=== PATIENT | male | born 1990 | race Caucasian/White ===

== ENCOUNTER 2020-07-26 19:33 | Emergency (ER) | payer OTHER, SELFPAY ==
[2020-07-26 19:42] VITALS: BP 138/83; PULSE 66; RESP 16; TEMP 36.8; O2SAT 100
--- NOTE | 2020-07-26 20:00 | ED.GENADULT ---
HPI - General Adult General Chief complaint: Skin/Abscess/Foreign Body Stated complaint: Rash Time Seen by Provider: 07/26/20 20:00 Source: patient Mode of arrival: ambulatory Limitations: no limitations History of Present Illness HPI narrative: 29-year-old male patient presents to the [facility] with complaints of a rash for the past week. Patient states he has had a rash to bilateral thighs as well as his lower abdomen and going up to the left side. Patient denies coming in contact with anything that he is allergic to. Patient denies any new soaps lotions or detergent however he states that he has recently had some new razor soap. Patient denies any itching. Denies any pain to the area. Patient states he just came in because he has noticed a rash but it has not really bothered him. Patient states he has not tried anything or put any lotion soaps or ointments to the rash. Denies any fevers, body aches or chills. Denies any abdominal pain, nausea, vomiting or diarrhea. Denies any recent illness. Patient states he is in a monogamous relationship with his and does not have any concerns for any STDs or syphilis. Related Data Home Medications Medication Instructions Recorded Confirmed fluoxetine 20 mg PO DAILY 07/26/20 07/26/20 lorazepam 0.5 mg PO DIRECTED PRN 07/26/20 07/26/20 Allergies Allergy/AdvReac Type Severity Reaction Status Date / Time azithromycin Allergy Mild Rash Verified 07/26/20 19:44 lavender (Lavandula Allergy Mild Rash Verified 07/26/20 19:44 angustifolia) Dairy Allergy Unknown GI Uncoded 07/26/20 19:44 Review of Systems Review of Systems: Narrative: CONSTITUTIONAL: Denies fever, chills, or sweats. EYES: Denies visual changes, redness, or discharge. ENT: Denies rhinorrhea, congestion, sore throat, or otalgia. CARDIOVASCULAR: Denies chest pain, palpitations, or edema. RESPIRATORY: Denies cough or dyspnea. GASTROINTESTINAL: Denies abdominal pain, nausea, vomiting, or diarrhea. GENITOURINARY: Denies dysuria or hematuria. SKIN: Positive rash to bilateral thighs, lower abdomen and left flank. MUSCULOSKELETAL: Denies back pain, joint pain, or myalgia. NEUROLOGIC: Denies headache, numbness, or weakness. PSYCHIATRIC: Denies anxiety or depression. [facility] Past Medical History Medical History History of depression History of gastroesophageal reflux (GERD) Social History Social History Smoking status: Current every day smoker Tobacco type: e-cigarettes/vaping Gender identity (if verbalized by the patient): Male Comments At the time of my signature I agree with nursing past medical history, surgical, social, and family history. There is no relevant family history pertinent to the presenting complaint. Exam Narrative: Exam Narrative: GENERAL: Well-appearing, well-nourished, and in no acute distress. HEAD: Normocephalic, atraumatic. EYES: PERRLA and EOMI. ENT: Nares clear, no rhinorrhea or epistaxis. Mucous membranes moist. Posterior pharynx no erythema, tonsillectomy, exudates or lesions present. Bilateral TMs are clear no erythema or foreign bodies in the canal. NECK: Supple. No lymphadenopathy CHEST: Clear to auscultation. No respiratory distress. HEART: Regular rate and rhythm. No murmur heard. Normal peripheral pulses. ABDOMEN: Soft, nontender, nondistended, normal active bowel sounds. EXTREMITIES: Normal range of motion. No edema. SKIN: Patient appears to have some flat macules with hyperpigmentation in irregular form noted to various areas of the bilateral thighs, lower abdomen and to the left upper and lower quadrant of the abdomen. There is no rash noted to the back or upper extremities. No rash noted to the palms of the hands or bottom of the feet. No itching noted. No open wounds or discharge noted NEURO: No focal deficits. Alert and oriented x3. Course Vital Signs [place]
== END 2020-07-26 20:10 | disposition home or self-care (01) ==
PROVIDERS: Emergency Provider Nurse Practitioner Family; PCP Physician Assistant
DX: B09 Unspecified viral infection characterized by skin and mucous membrane lesions (principal); F32.9 Major depressive disorder, single episode, unspecified; K21.9 Gastro-esophageal reflux disease without esophagitis; F17.200 Nicotine dependence, unspecified, uncomplicated
CPT/HCPCS: 99211; G0463